=== PATIENT | male | born 1955 | race Caucasian/White ===

== ENCOUNTER → 2022-02-08 | Outpatient (CLI) | payer MEDICARE, OTHER ==
[2022-02-08 14:22] LABS: BASO # 0.1 10^3/uL (0.0-0.2); BASO % 0.6 % (0.0-1.0); EOS # 0.1 10^3/uL (0.0-0.5); HEMATOCRIT 44.6 % (42.0-52.0); HEMOGLOBIN 14.9 g/dl (13.5-17.5); LYMPH # 2.1 10^3/uL (1.5-5.0); LYMPH % 26.1 % (24.0-44.0); MEAN CORPUSCULAR HEMOGLOBIN 33.9 pg (27.0-33.0); MEAN CORPUSCULAR HGB CONC 33.4 g/dl (32.0-36.5); MEAN CORPUSCULAR VOLUME 101.4 fl (80.0-96.0); MONO # 0.6 10^3/uL (0.0-0.8); MONO % 7.8 % (2.0-8.0); NEUTROPHILS % 64.4 % (36.0-66.0); PLATELET COUNT, AUTOMATED 341 10^3/uL (150-450); WHITE BLOOD COUNT 7.8 10^3/uL (4.0-10.0)
[2022-02-08 14:59] LABS: ALBUMIN 3.4 GM/DL (3.2-5.2); ALKALINE PHOSPHATASE 63 U/L (45-117); ALT/SGPT 16 U/L (12-78); AMYLASE 32 U/L (25-115); AST/SGOT 10 U/L (7-37); BILIRUBIN,TOTAL 0.3 MG/DL (0.2-1.0); BLOOD UREA NITROGEN 9 MG/DL (7-18); CALCIUM LEVEL 9.4 MG/DL (8.8-10.2); CARBON DIOXIDE LEVEL 28 MEQ/L (21-32); CHLORIDE LEVEL 102 MEQ/L (98-107); CREATININE FOR GFR 0.77 MG/DL (0.70-1.30); GLOMERULAR FILTRATION RATE > 60.0 (>49); GLUCOSE, FASTING 98 MG/DL (70-100); LIPASE 93 U/L (73-393); POTASSIUM SERUM 4.3 MEQ/L (3.5-5.1); SODIUM LEVEL 136 MEQ/L (136-145); TOTAL PROTEIN 7.2 GM/DL (6.4-8.2)
== END ==
LOC: M WUC 10:46
PROVIDERS: ATTEND Physician Assistant
DX: R10.816 Epigastric abdominal tenderness (principal); Z72.0 Tobacco use

== ENCOUNTER → 2024-01-08 | Outpatient (CLI) | payer MEDICARE | LOC: M WUC 10:14 | PROVIDERS: ATTEND Student in an Organized Health Care Education/Training Program | DX: R06.02 Shortness of breath (principal); I51.7 Cardiomegaly; I70.0 Atherosclerosis of aorta; R91.8 Other nonspecific abnormal finding of lung field ==

== ENCOUNTER 2024-01-15 10:56 | Inpatient (IN) | payer MEDICARE ==
[~2024-01-15] VITALS: Ht 177.8 cm; Wt 62.8 kg
[2024-01-15] VITALS (13 sets, daily range): BP systolic 121–157; BP diastolic 64–98; TEMP 98–98.7; O2SAT 96–98
[2024-01-15 12:11] LABS: VENOUS BASE EXCESS -1.8 (-2.0-2.0); VENOUS HCO3 23.3 MMOL/L (23.0-27.0); VENOUS O2 SATURATION 77.4 % (60.0-80.0); VENOUS PARTIAL PRESSURE CO2 41.2 mmHg (38.0-50.0); VENOUS PARTIAL PRESSURE O2 43.9 mmHg (30.0-50.0); VENOUS PH 7.371 UNITS (7.330-7.430); VENOUS STANDARD HCO3 22.5 MMOL/L; VENOUS TOTAL CO2 24.6 MMOL/L (24.0-28.0)
[2024-01-15 12:17] LABS: BASO % 0.3 % (0.0-1.0); EOS % 0.3 % (0.0-3.0); HEMATOCRIT 37.8 % (42.0-52.0); HEMOGLOBIN 12.7 g/dl (13.5-17.5); LYMPH # 0.6 10^3/uL (1.5-5.0); LYMPH % 5.3 % (24.0-44.0); MEAN CORPUSCULAR HEMOGLOBIN 32.6 pg (27.0-33.0); MEAN CORPUSCULAR HGB CONC 33.6 g/dl (32.0-36.5); MEAN CORPUSCULAR VOLUME 97.2 fl (80.0-96.0); MONO % 7.9 % (2.0-8.0); NEUTROPHILS # 10.4 10^3/uL (1.5-8.5); NEUTROPHILS % 85.9 % (36.0-66.0); PLATELET COUNT, AUTOMATED 673 10^3/uL (150-450); RED BLOOD COUNT 3.89 10^6/uL (4.30-6.10); WHITE BLOOD COUNT 12.2 10^3/uL (4.0-10.0)
[2024-01-15 12:40] LABS: ALKALINE PHOSPHATASE 190 U/L (46-116); ALT/SGPT 56 U/L (7.0-40); AST/SGOT 55 U/L (<34); BILIRUBIN,DIRECT 0.1 MG/DL (<0.4); BILIRUBIN,TOTAL 0.3 MG/DL (0.3-1.2); BLOOD UREA NITROGEN 29 MG/DL (9-23); CALCIUM LEVEL 10.7 MG/DL (8.3-10.6); CARBON DIOXIDE LEVEL 28 MMOL/L (20-31); CHLORIDE LEVEL 105 MMOL/L (98-107); GLOMERULAR FILTRATION RATE > 60.0 (>49); GLUCOSE, FASTING 115 MG/DL (74-106); POTASSIUM SERUM 4.5 MMOL/L (3.5-5.1); SODIUM LEVEL 138 MMOL/L (136-145); TOTAL PROTEIN 6.5 G/DL (5.7-8.2)
[2024-01-15 12:41] LABS: THYROXINE (T4) 9.1 UG/DL (4.5-10.9)
[2024-01-15 12:44] LABS: CPK CREATINE PHOSPHOKINASE 100 U/L (46-171)
[2024-01-15] MEDS: IPRATROPIUM 0.5MG/ALBUTEROL 2.5MG INH SOL UD 3ML (DUONEB) NEB ONE (12:52)
[2024-01-15] MEDS: ALBUTEROL SULFATE 2.5MG/0.5ML INH NEB SOLN INH ONE (12:52)
[2024-01-15] MEDS: PIPERACILLIN/TAZOBACTAM SOD 4.5 GM in D5W MINI-BAG PLUS 50 ML IV ONE (13:01)
[2024-01-15] MEDS ORDERED: ISOVUE-370 76% 100ML VIAL As Ordered ONE (13:01)
[2024-01-15] MEDS: NS 1,000 ML IV ONE (13:01)
[2024-01-15 13:18] LABS: CK-MB VALUE MASS 2.8 NG/ML (<3.6)
[2024-01-15 13:22] LABS: MB/CK RELATIVE INDEX 3.63 (< OR =4)
[2024-01-15] MEDS ORDERED: BISACODYL 10MG SUPP PR PRN (14:15)
[2024-01-15] MEDS ORDERED: LEVALBUTEROL 1.25MG 0.5ML CONCENTRATE NEB NEB PRN (14:15)
[2024-01-15] MEDS ORDERED: ONDANSETRON 4MG 2ML VIAL IV PRN (14:15)
[2024-01-15 14:32] LABS: PROCALCITONIN 0.22 ng/ml
[2024-01-15] MEDS ORDERED: ALBU8.5H INH (15:29)
[2024-01-15] MEDS ORDERED: IPRA0.00 NEB (15:29)
[2024-01-15] MEDS ORDERED: HOME MED LIST COMPLETE! XX SCH (15:30)
[2024-01-15 16:16] LABS: PROCALCITONIN 0.21 ng/ml
[2024-01-15] MEDS: MIDAZOLAM INJ 2MG/2ML VIAL IV STA (17:28)
[2024-01-15] MEDS: LIDOCAINE 1% MDV 20ML VIAL SC STA (17:30)
[2024-01-15] MEDS: KETOROLAC 30 MG/ML 1ML VIAL IV SCH (17:45)
[2024-01-15] MEDS: flumazeniL 0.5MG/5ML VIAL IV STA (18:00)
[2024-01-15 18:45] LABS: PH BODY FLUID 7.517 UNITS (NOT ESTABLISHED); SOURCE, BODY FLUID pH PLEURAL
[2024-01-15 18:57] LABS: APPEARANCE, BODY FLUID CLOUDY (CLEAR); PLEURAL FL COLOR RED (COLORLESS); SOURCE, BODY FLUID PLEURAL
[2024-01-15 19:01] LABS: SOURCE, BODY FLUID ALBUMIN PLEURAL
[2024-01-15 19:06] LABS: SOURCE, BODY FLUID GLUCOSE PLEURAL; SOURCE, BODY FLUID TRIG PLEURAL; TRIGLYCERIDE, BODY FLUID 34 MG/DL (NOT ESTABLISHED)
[2024-01-15] MEDS: DOXYCYCLINE HYCLATE 100 MG in D5W MINI-BAG PLUS 100 ML IV SCH (19:07)
[2024-01-15 19:08] LABS: AMYLASE, BODY FLUID 29 U/L (NOT ESTABLISHED); CHOLESTEROL, BODY FLUID 69 MG/DL (NOT ESTABLISHED); SOURCE, BODY FLUID AMYLASE PLEURAL; SOURCE, BODY FLUID CHOL PLEURAL
[2024-01-15] MEDS: D5W/0.9% SODIUM CHLORIDE 1,000 ML IV SCH (19:09)
[2024-01-15 19:17] LABS: LDH, BODY FLUID > 750 U/L (NOT ESTABLISHED); SOURCE, BODY FLUID LDH PLEURAL
[2024-01-15 19:33] LABS: SOURCE, BODY FLUID TOT PROTEIN PLEURAL; TOTAL PROTEIN, BODY FLUID 4.3 G/DL (NOT ESTABLISHED)
[2024-01-15] MEDS: LEVALBUTEROL 1.25MG 0.5ML CONCENTRATE NEB NEB SCH (20:00)
[2024-01-15] MEDS: IPRATROPIUM 0.5MG/ALBUTEROL 2.5MG INH SOL UD 3ML (DUONEB) NEB SCH (20:09)
[2024-01-15] MEDS: DOCUSATE SODIUM 100MG CAPSULE PO SCH (20:22)
[2024-01-15] MEDS: HEPARIN SOD (PORCINE) 5000UNITS/ML 1ML VIAL/SYRINGE SC SCH (20:22)
[2024-01-15] MEDS: PIPERACILLIN/TAZOBACTAM SOD 3.375 GM in D5W MINI-BAG PLUS 50 ML IV SCH (20:22)
[2024-01-15] MEDS: ACETAMINOPHEN TAB 650MG DOSE (2X325MG) PO PRN (22:01)
[2024-01-16] MEDS: MOM 30ML SUSPENSION UDC PO ONE (02:34)
[2024-01-16 04:01] VITALS: BP_SYST 133; BP_SYST 139; BP_DIAS 72; TEMP 98.4; O2SAT 99
[2024-01-16 05:51] LABS: ABG BASE EXCESS 4.6 (-2.0-2.0); ABG HCO3 30.2 MMOL/L (22.0-26.0); ABG O2 SATURATION 96.9 % (95.0-99.0); ABG PARTIAL PRESSURE CO2 48.8 mmHg (35.0-45.0); ABG PARTIAL PRESSURE O2 88.4 mmHg (75.0-100.0); ABG STANDARD HCO3 28.6 MMOL/L. (22.0-26.0); ABG TOTAL CO2 31.7 MMOL/L (23.0-31.0); ABG pH (ARTERIAL) 7.409 UNITS (7.350-7.450)
[2024-01-16 06:49] LABS: BASO % 0.3 % (0.0-1.0); EOS # 0.2 10^3/uL (0.0-0.5); EOS % 1.6 % (0.0-3.0); HEMATOCRIT 37.6 % (42.0-52.0); HEMOGLOBIN 12.6 g/dl (13.5-17.5); LYMPH % 8.7 % (24.0-44.0); MEAN CORPUSCULAR HEMOGLOBIN 32.8 pg (27.0-33.0); MEAN CORPUSCULAR HGB CONC 33.5 g/dl (32.0-36.5); MEAN CORPUSCULAR VOLUME 97.9 fl (80.0-96.0); MONO # 0.9 10^3/uL (0.0-0.8); MONO % 7.9 % (2.0-8.0); NEUTROPHILS # 9.1 10^3/uL (1.5-8.5); NEUTROPHILS % 81.1 % (36.0-66.0); PLATELET COUNT, AUTOMATED 615 10^3/uL (150-450); RED BLOOD COUNT 3.84 10^6/uL (4.30-6.10); WHITE BLOOD COUNT 11.2 10^3/uL (4.0-10.0)
[2024-01-16 07:21] LABS: ALBUMIN 1.7 G/DL (3.2-5.2); ALKALINE PHOSPHATASE 173 U/L (46-116); ALT/SGPT 52 U/L (7.0-40); AST/SGOT 58 U/L (<34); BILIRUBIN,TOTAL 0.2 MG/DL (0.3-1.2); BLOOD UREA NITROGEN 31 MG/DL (9-23); CALCIUM LEVEL 9.5 MG/DL (8.3-10.6); CARBON DIOXIDE LEVEL 31 MMOL/L (20-31); CHLORIDE LEVEL 105 MMOL/L (98-107); CREATININE FOR GFR 1.05 MG/DL (0.70-1.30); GLOMERULAR FILTRATION RATE > 60.0 (>49); GLUCOSE, FASTING 95 MG/DL (74-106); POTASSIUM SERUM 4.4 MMOL/L (3.5-5.1); SODIUM LEVEL 140 MMOL/L (136-145); TOTAL PROTEIN 5.8 G/DL (5.7-8.2)
[2024-01-16 08:12] VITALS: BP 122/87; TEMP 98.3; O2SAT 95
[2024-01-16] MEDS ORDERED: MOM 30ML SUSPENSION UDC PO SCH (09:00)
[2024-01-16] MEDS: NICOTINE 21MG/24HR 1 EA TRANSDERMAL TD SCH (09:00)
[2024-01-16] MEDS: PANTOPRAZOLE 40MG TAB (PROTONIX) PO SCH (09:29)
[2024-01-16] MEDS: PINK BISMUTH SUSP 524MG/30ML ORAL SYRINGE PO PRN (11:49)
[2024-01-16 12:47] VITALS: BP 134/79; TEMP 98; O2SAT 96
[2024-01-16 15:25] VITALS: BP 135/72; TEMP 98.6; O2SAT 94
[2024-01-16 19:08] VITALS: BP 126/76; TEMP 98.4; O2SAT 95
[2024-01-16 23:59] VITALS: BP 141/82; TEMP 97.6; O2SAT 94
[2024-01-17] MEDS: PERCOCET 5MG/325MG TAB PO PRN ×2 (01:21→11:12)
[2024-01-17 04:09] VITALS: BP 128/80; TEMP 97.2; O2SAT 98
[2024-01-17 06:26] LABS: BASO # 0.1 10^3/uL (0.0-0.2); BASO % 0.5 % (0.0-1.0); EOS # 0.2 10^3/uL (0.0-0.5); EOS % 1.8 % (0.0-3.0); HEMATOCRIT 37.3 % (42.0-52.0); HEMOGLOBIN 12.2 g/dl (13.5-17.5); LYMPH # 1.1 10^3/uL (1.5-5.0); LYMPH % 10.2 % (24.0-44.0); MEAN CORPUSCULAR HEMOGLOBIN 31.9 pg (27.0-33.0); MEAN CORPUSCULAR HGB CONC 32.7 g/dl (32.0-36.5); MEAN CORPUSCULAR VOLUME 97.6 fl (80.0-96.0); NEUTROPHILS # 8.7 10^3/uL (1.5-8.5); NEUTROPHILS % 78.1 % (36.0-66.0); PLATELET COUNT, AUTOMATED 602 10^3/uL (150-450); RED BLOOD COUNT 3.82 10^6/uL (4.30-6.10); WHITE BLOOD COUNT 11.2 10^3/uL (4.0-10.0)
[2024-01-17 06:50] LABS: BLOOD UREA NITROGEN 27 MG/DL (9-23); CALCIUM LEVEL 8.7 MG/DL (8.3-10.6); CARBON DIOXIDE LEVEL 30 MMOL/L (20-31); CHLORIDE LEVEL 108 MMOL/L (98-107); CREATININE FOR GFR 0.93 MG/DL (0.70-1.30); GLOMERULAR FILTRATION RATE > 60.0 (>49); GLUCOSE, FASTING 96 MG/DL (74-106); POTASSIUM SERUM 4.2 MMOL/L (3.5-5.1); SODIUM LEVEL 138 MMOL/L (136-145)
[2024-01-17 08:06] VITALS: BP 133/78; TEMP 96.6; O2SAT 90
[2024-01-17 12:07] VITALS: BP 132/76; TEMP 97.7; O2SAT 93
[2024-01-17 16:09] VITALS: BP 140/76; TEMP 97.8; O2SAT 94
[2024-01-17 20:25] VITALS: BP 138/79; TEMP 98.9; O2SAT 90
[2024-01-17] MEDS: DOXYCYCLINE HYCLATE 100MG TABLET PO SCH (21:32)
[2024-01-17] MEDS: CEFDINIR 300 MG CAP (OMNICEF) PO SCH (21:32)
[2024-01-17] MEDS: RAMELTEON 8 MG TAB (ROZEREM) PO PRN (21:32)
[2024-01-17 23:58] VITALS: BP 133/81; TEMP 97.9; O2SAT 92
[2024-01-18 04:19] VITALS: BP 137/80; TEMP 97.6; O2SAT 93
[2024-01-18 05:55] LABS: BASO # 0.1 10^3/uL (0.0-0.2); BASO % 0.4 % (0.0-1.0); EOS # 0.1 10^3/uL (0.0-0.5); EOS % 0.8 % (0.0-3.0); HEMATOCRIT 38.3 % (42.0-52.0); HEMOGLOBIN 12.7 g/dl (13.5-17.5); LYMPH % 8.2 % (24.0-44.0); MEAN CORPUSCULAR HEMOGLOBIN 32.1 pg (27.0-33.0); MEAN CORPUSCULAR HGB CONC 33.2 g/dl (32.0-36.5); MEAN CORPUSCULAR VOLUME 96.7 fl (80.0-96.0); MONO # 1.1 10^3/uL (0.0-0.8); MONO % 9.1 % (2.0-8.0); NEUTROPHILS # 9.5 10^3/uL (1.5-8.5); PLATELET COUNT, AUTOMATED 641 10^3/uL (150-450); RED BLOOD COUNT 3.96 10^6/uL (4.30-6.10); WHITE BLOOD COUNT 11.7 10^3/uL (4.0-10.0)
[2024-01-18 06:18] LABS: BLOOD UREA NITROGEN 23 MG/DL (9-23); CALCIUM LEVEL 9.1 MG/DL (8.3-10.6); CARBON DIOXIDE LEVEL 28 MMOL/L (20-31); CHLORIDE LEVEL 105 MMOL/L (98-107); CREATININE FOR GFR 0.71 MG/DL (0.70-1.30); GLOMERULAR FILTRATION RATE > 60.0 (>49); GLUCOSE, FASTING 96 MG/DL (74-106); POTASSIUM SERUM 4.6 MMOL/L (3.5-5.1); SODIUM LEVEL 137 MMOL/L (136-145)
[2024-01-18 07:44] VITALS: BP 129/72; TEMP 97.4; O2SAT 91
[2024-01-18 11:19] VITALS: BP 148/63; TEMP 97.3; O2SAT 91
[2024-01-18] MEDS: FOLIC ACID 1MG TAB PO SCH (15:36)
[2024-01-18] MEDS: CYANOCOBALAMIN 500 MCG TAB PO SCH (15:37)
[2024-01-18 15:52] VITALS: BP 139/68; TEMP 97.9; O2SAT 91
[2024-01-18 20:39] VITALS: BP 136/81; TEMP 99.1; O2SAT 92
[2024-01-18] MEDS: traZODone 50 MG TAB PO SCH (20:51)
[2024-01-18 23:21] VITALS: BP 129/76; TEMP 98.2; O2SAT 94
[2024-01-19 04:24] VITALS: BP 118/79; TEMP 98.6; O2SAT 92
[2024-01-19 05:45] LABS: BASO % 0.4 % (0.0-1.0); EOS # 0.1 10^3/uL (0.0-0.5); EOS % 1.1 % (0.0-3.0); HEMATOCRIT 37.9 % (42.0-52.0); HEMOGLOBIN 12.3 g/dl (13.5-17.5); LYMPH % 9.5 % (24.0-44.0); MEAN CORPUSCULAR HEMOGLOBIN 32.3 pg (27.0-33.0); MEAN CORPUSCULAR HGB CONC 32.5 g/dl (32.0-36.5); MEAN CORPUSCULAR VOLUME 99.5 fl (80.0-96.0); MONO # 1.1 10^3/uL (0.0-0.8); MONO % 9.7 % (2.0-8.0); NEUTROPHILS # 8.7 10^3/uL (1.5-8.5); NEUTROPHILS % 78.8 % (36.0-66.0); PLATELET COUNT, AUTOMATED 596 10^3/uL (150-450); RED BLOOD COUNT 3.81 10^6/uL (4.30-6.10)
[2024-01-19 06:16] LABS: BLOOD UREA NITROGEN 21 MG/DL (9-23); CALCIUM LEVEL 8.5 MG/DL (8.3-10.6); CARBON DIOXIDE LEVEL 30 MMOL/L (20-31); CHLORIDE LEVEL 103 MMOL/L (98-107); CREATININE FOR GFR 0.74 MG/DL (0.70-1.30); GLOMERULAR FILTRATION RATE > 60.0 (>49); GLUCOSE, FASTING 93 MG/DL (74-106); POTASSIUM SERUM 4.7 MMOL/L (3.5-5.1); SODIUM LEVEL 136 MMOL/L (136-145)
[2024-01-19 07:38] VITALS: BP 126/75; TEMP 97.4; O2SAT 95
[2024-01-19] MEDS ORDERED: FOLI1TAB11 PO (10:53)
[2024-01-19] MEDS ORDERED: DOXY100T PO (10:53)
[2024-01-19] MEDS ORDERED: VITA500T40 PO (10:53)
[2024-01-19] MEDS ORDERED: CEFD300CAP PO (10:53)
[2024-01-19] MEDS ORDERED: PERCOCET PO (10:53)
== END 2024-01-19 12:13 | disposition home or self-care (01) | DRG 180 ==
LOC: M ED 10:56 → M ED INP 13:50 → M PCU 14:40
PROVIDERS: ADMIT Hospitalist; ATTEND Hospitalist
PROC: 0W9B30Z Drainage of Left Pleural Cavity with Drainage Device, Percutaneous Approach (ICD-10-PCS; principal; 2024-01-15)
DX: C34.32 Malignant neoplasm of lower lobe, left bronchus or lung (principal); J18.9 Pneumonia, unspecified organism; J91.0 Malignant pleural effusion; J44.9 Chronic obstructive pulmonary disease, unspecified; F10.10 Alcohol abuse, uncomplicated; K21.9 Gastro-esophageal reflux disease without esophagitis; F17.210 Nicotine dependence, cigarettes, uncomplicated; E83.51 Hypocalcemia; J47.9 Bronchiectasis, uncomplicated; E83.52 Hypercalcemia; Z79.899 Other long term (current) drug therapy; Z88.8 Allergy status to other drugs, medicaments and biological substances

== ENCOUNTER 2024-01-21 11:35 | Inpatient (IN) | payer MEDICARE ==
[~2024-01-21] VITALS: Ht 177.8 cm; Wt 65.9 kg
[~2024-01-21 11:35] MED LIST: ALBU8.5H INH; CEFD300CAP PO; DOXY100T PO; FOLI1TAB11 PO; IPRA0.00 INH; PERCOCET PO; VITA500T40 PO
[2024-01-21 13:05] LABS: BASO % 0.2 % (0.0-1.0); EOS % 0.1 % (0.0-3.0); HEMATOCRIT 35.5 % (42.0-52.0); LYMPH # 0.8 10^3/uL (1.5-5.0); LYMPH % 4.7 % (24.0-44.0); MEAN CORPUSCULAR HEMOGLOBIN 32.9 pg (27.0-33.0); MEAN CORPUSCULAR HGB CONC 33.8 g/dl (32.0-36.5); MEAN CORPUSCULAR VOLUME 97.3 fl (80.0-96.0); MONO # 1.1 10^3/uL (0.0-0.8); MONO % 6.9 % (2.0-8.0); NEUTROPHILS # 14.1 10^3/uL (1.5-8.5); NEUTROPHILS % 87.7 % (36.0-66.0); PLATELET COUNT, AUTOMATED 464 10^3/uL (150-450); RED BLOOD COUNT 3.65 10^6/uL (4.30-6.10); WHITE BLOOD COUNT 16.1 10^3/uL (4.0-10.0)
[2024-01-21 13:18] LABS: INR 1.16; PROTHROMBIN TIME 14.5 SECONDS (12.5-14.5)
[2024-01-21 13:38] LABS: ALBUMIN 1.6 G/DL (3.2-5.2); ALKALINE PHOSPHATASE 195 U/L (46-116); ALT/SGPT 42 U/L (7.0-40); AST/SGOT 40 U/L (<34); BILIRUBIN,DIRECT < 0.1 MG/DL (<0.4); BILIRUBIN,TOTAL 0.2 MG/DL (0.3-1.2); BLOOD UREA NITROGEN 21 MG/DL (9-23); CALCIUM LEVEL 8.5 MG/DL (8.3-10.6); CARBON DIOXIDE LEVEL 28 MMOL/L (20-31); CHLORIDE LEVEL 104 MMOL/L (98-107); CK-MB VALUE MASS 1.1 NG/ML (<3.6); CPK CREATINE PHOSPHOKINASE 58 U/L (46-171); GLOMERULAR FILTRATION RATE > 60.0 (>49); GLUCOSE, FASTING 133 MG/DL (74-106); MB/CK RELATIVE INDEX 1.89 (< OR =4); POTASSIUM SERUM 4.2 MMOL/L (3.5-5.1); SODIUM LEVEL 137 MMOL/L (136-145); TOTAL PROTEIN 5.7 G/DL (5.7-8.2)
[2024-01-21 13:40] LABS: THYROID STIMULATING HORMONE 1.648 uIU/ML (0.55-4.78)
[2024-01-21] MEDS: IPRATROPIUM 0.5MG/ALBUTEROL 2.5MG INH SOL UD 3ML (DUONEB) NEB SCH ×2 (13:49→16:00)
[2024-01-21] MEDS: dexAMETHasone 20MG/5ML VIAL IV ONE (14:57)
[2024-01-21] MEDS ORDERED: ONDANSETRON 4MG 2ML VIAL IV PRN (16:00)
[2024-01-21] MEDS ORDERED: MIRALAX *UNIT DOSE* 17GM PACKET PO PRN (16:00)
[2024-01-21] MEDS ORDERED: SENOKOT S TAB PO PRN (16:00)
[2024-01-21] MEDS ORDERED: MOM 30ML SUSPENSION UDC PO PRN (16:00)
[2024-01-21] MEDS ORDERED: BISACODYL 5MG TAB PO PRN (16:00)
[2024-01-21] MEDS ORDERED: ISOVUE-370 76% 100ML VIAL As Ordered ONE (17:27)
[2024-01-21] MEDS ORDERED: DOXY100T PO (17:35)
[2024-01-21] MEDS ORDERED: CEFD1CAP9 PO (17:35)
[2024-01-21] MEDS ORDERED: DOXY100C3 PO (17:35)
[2024-01-21] MEDS ORDERED: FOLI1TAB11 PO (17:38)
[2024-01-21] MEDS ORDERED: B-12100021 PO (17:39)
[2024-01-21] MEDS ORDERED: HOME MED LIST COMPLETE! XX SCH (17:40)
[2024-01-21] MEDS: PERCOCET 5MG/325MG TAB PO ONE (18:10)
[2024-01-21] MEDS: methylPREDNISolone 125MG 2ML VIAL IV SCH (18:11)
[2024-01-21] MEDS: KETOROLAC 30 MG/ML 1ML VIAL IV ONE (18:11)
[2024-01-21] MEDS ORDERED: LORazepam 2 MG TAB PO PRN (19:00)
[2024-01-21] MEDS ORDERED: NALOXONE INJ 0.4MG/1ML VIAL IV PRN (19:00)
[2024-01-21] MEDS ORDERED: flumazeniL 0.5MG/5ML VIAL IV PRN (19:00)
[2024-01-21 19:16] LABS: PROCALCITONIN 0.26 ng/ml
[2024-01-21] MEDS: TIOTROPIUM INHALER/CAPSULE (SPIRIVA) INH SCH (19:46)
[2024-01-21] MEDS: BUDESONIDE 180MCG INHALER (PULMICORT FLEXHALER) INH SCH (19:47)
[2024-01-21] MEDS: PIPERACILLIN/TAZOBACTAM SOD 4.5 GM in D5W MINI-BAG PLUS 50 ML IV SCH (21:00)
[2024-01-21] MEDS ORDERED: methylPREDNISolone 125MG 2ML VIAL IV SCH (21:00)
[2024-01-22] VITALS (7 sets, daily range): BP systolic 125–142; BP diastolic 67–97; TEMP 97.1–98.9; O2SAT 91–97
[2024-01-22] MEDS: DICLOFENAC EPOLAMINE 1.3% PATCH TOP SCH (00:10)
[2024-01-22] MEDS: PERCOCET 5MG/325MG TAB PO SCH (01:23)
[2024-01-22] MEDS: guaiFENesin ER TABLET 600 MG TAB PO SCH (01:25)
[2024-01-22 07:32] LABS: BASO % 0.1 % (0.0-1.0); HEMATOCRIT 36.7 % (42.0-52.0); HEMOGLOBIN 11.9 g/dl (13.5-17.5); LYMPH # 0.3 10^3/uL (1.5-5.0); LYMPH % 2.8 % (24.0-44.0); MEAN CORPUSCULAR HGB CONC 32.4 g/dl (32.0-36.5); MEAN CORPUSCULAR VOLUME 98.7 fl (80.0-96.0); MONO # 0.1 10^3/uL (0.0-0.8); MONO % 1.3 % (2.0-8.0); NEUTROPHILS # 10.1 10^3/uL (1.5-8.5); NEUTROPHILS % 95.4 % (36.0-66.0); PLATELET COUNT, AUTOMATED 388 10^3/uL (150-450); RED BLOOD COUNT 3.72 10^6/uL (4.30-6.10); WHITE BLOOD COUNT 10.5 10^3/uL (4.0-10.0)
[2024-01-22 07:57] LABS: BLOOD UREA NITROGEN 19 MG/DL (9-23); CALCIUM LEVEL 9.1 MG/DL (8.3-10.6); CARBON DIOXIDE LEVEL 31 MMOL/L (20-31); CHLORIDE LEVEL 104 MMOL/L (98-107); CHOLESTEROL LEVEL 154 MG/DL (<200); CHOLESTEROL RISK RATIO 4.66 (<5); CREATININE FOR GFR 0.73 MG/DL (0.70-1.30); GLOMERULAR FILTRATION RATE > 60.0 (>49); GLUCOSE, FASTING 124 MG/DL (74-106); LDL CHOLESTEROL 102.8 MG/DL (<100); POTASSIUM SERUM 4.5 MMOL/L (3.5-5.1); SODIUM LEVEL 138 MMOL/L (136-145); TRIGLYCERIDES LEVEL 91 MG/DL (<150)
[2024-01-22 08:00] LABS: THYROID STIMULATING HORMONE 0.405 uIU/ML (0.55-4.78)
[2024-01-22 08:11] LABS: HEPATITIS B SURFACE ANTIGEN NEGATIVE (NEGATIVE)
[2024-01-22 08:33] LABS: HEPATITIS B CORE ANTIBODY IGM NEGATIVE (NEGATIVE); HEPATITIS C VIRUS ABY INDEX 0.15 INDEX (<0.8)
[2024-01-22] MEDS: LIDOCAINE 5% (LIDODERM) PATCH TD SCH (08:53)
[2024-01-22] MEDS: LACTOBACILLUS ACIDOPHILUS CAP (BACID) PO SCH (08:56)
[2024-01-22] MEDS: MULTIVITAMINS/MINERALS THERAP 1 TAB PO SCH (08:56)
[2024-01-22] MEDS: THIAMINE 100 MG TAB PO SCH (08:56)
[2024-01-22] MEDS: CYANOCOBALAMIN 500 MCG TAB PO SCH (08:57)
[2024-01-22] MEDS: ACETAMINOPHEN 325 MG TAB PO PRN (20:27)
[2024-01-22] MEDS: CYANOCOBALAMIN 1,000MCG/ML 1ML VIAL IM ONE (21:30)
[2024-01-23 00:06] VITALS: BP 116/69; TEMP 98.5; O2SAT 93
[2024-01-23 03:53] VITALS: BP 109/78; TEMP 97.4; O2SAT 91
[2024-01-23 05:58] LABS: BASO % 0.1 % (0.0-1.0); HEMATOCRIT 36.2 % (42.0-52.0); HEMOGLOBIN 11.8 g/dl (13.5-17.5); LYMPH # 0.3 10^3/uL (1.5-5.0); LYMPH % 1.7 % (24.0-44.0); MEAN CORPUSCULAR HEMOGLOBIN 32.5 pg (27.0-33.0); MEAN CORPUSCULAR HGB CONC 32.6 g/dl (32.0-36.5); MEAN CORPUSCULAR VOLUME 99.7 fl (80.0-96.0); MONO # 0.5 10^3/uL (0.0-0.8); MONO % 2.7 % (2.0-8.0); NEUTROPHILS # 18.6 10^3/uL (1.5-8.5); NEUTROPHILS % 94.8 % (36.0-66.0); PLATELET COUNT, AUTOMATED 432 10^3/uL (150-450); RED BLOOD COUNT 3.63 10^6/uL (4.30-6.10); WHITE BLOOD COUNT 19.6 10^3/uL (4.0-10.0)
[2024-01-23 06:20] LABS: BLOOD UREA NITROGEN 21 MG/DL (9-23); CARBON DIOXIDE LEVEL 27 MMOL/L (20-31); CHLORIDE LEVEL 103 MMOL/L (98-107); CREATININE FOR GFR 0.68 MG/DL (0.70-1.30); GLOMERULAR FILTRATION RATE > 60.0 (>49); GLUCOSE, FASTING 130 MG/DL (74-106); POTASSIUM SERUM 4.5 MMOL/L (3.5-5.1); SODIUM LEVEL 137 MMOL/L (136-145)
[2024-01-23 07:35] VITALS: BP 113/66; TEMP 97.6; O2SAT 92
[2024-01-23] MEDS ORDERED: PILL CUTTER 1 EACH XX PRN (08:25)
[2024-01-23] MEDS: SIMETHICONE 80MG CHEW TAB PO SCH (08:28)
[2024-01-23] MEDS ORDERED: DEXA4TA PO (10:57)
[2024-01-23] MEDS: MORPHINE 10MG/0.5ML ORAL CONCENTRATE SOLUTION U/D SL PRN (11:32)
[2024-01-23] MEDS ORDERED: PRED20TA PO (17:31)
[2024-01-23] MEDS ORDERED: PRED10TA2 PO (17:31)
[2024-01-23] MEDS ORDERED: MUCI600T31 PO (17:31)
[2024-01-23] MEDS ORDERED: ALBU8.5H INH (17:31)
[2024-01-23] MEDS ORDERED: SIME80TA16 PO (17:31)
[2024-01-23] MEDS ORDERED: DULC10SU2 PR (17:51)
[2024-01-23] MEDS ORDERED: SENN-52 PO (17:51)
[2024-01-23] MEDS ORDERED: LIDO5TD TD (17:51)
[2024-01-23] MEDS ORDERED: DICL1PAT6 TOP (17:51)
[2024-01-23] MEDS ORDERED: MILKSUS3 PO (17:51)
[2024-01-23] MEDS ORDERED: BUDE180INH INH (17:51)
[2024-01-23] MEDS ORDERED: LACT20EL PO (17:51)
[2024-01-23] MEDS ORDERED: RISATAB3 PO (17:51)
[2024-01-23] MEDS ORDERED: CEFD1CAP9 PO (17:54)
[2024-01-23] MEDS ORDERED: DOXY-440 PO (17:54)
[2024-01-23] MEDS ORDERED: NARC1SPR NARES (18:03)
[2024-01-23] MEDS ORDERED: MORP1SOL PO (18:08)
[2024-01-23] MEDS ORDERED: MORP1SOL5 PO (18:11)
[2024-01-23] MEDS ORDERED: VITA500T40 PO (18:13)
[2024-01-23 19:28] VITALS: BP 133/68; TEMP 97.7; O2SAT 90
[2024-01-23 23:32] VITALS: BP 131/73; TEMP 97.4; O2SAT 92
[2024-01-24] VITALS (10 sets, daily range): BP systolic 123–153; BP diastolic 64–87; TEMP 96.8–98; O2SAT 86–91
[2024-01-24] MEDS: methylPREDNISolone 40MG 1ML VIAL IV SCH (01:12)
[2024-01-24] MEDS: IPRATROPIUM 0.5MG/ALBUTEROL 2.5MG INH SOL UD 3ML (DUONEB) NEB PRN (06:09)
[2024-01-24 06:30] LABS: BASO % 0.1 % (0.0-1.0); HEMATOCRIT 34.6 % (42.0-52.0); HEMOGLOBIN 11.3 g/dl (13.5-17.5); LYMPH # 0.3 10^3/uL (1.5-5.0); LYMPH % 1.3 % (24.0-44.0); MEAN CORPUSCULAR HEMOGLOBIN 32.4 pg (27.0-33.0); MEAN CORPUSCULAR HGB CONC 32.7 g/dl (32.0-36.5); MEAN CORPUSCULAR VOLUME 99.1 fl (80.0-96.0); MONO # 0.8 10^3/uL (0.0-0.8); MONO % 3.4 % (2.0-8.0); NEUTROPHILS # 20.8 10^3/uL (1.5-8.5); NEUTROPHILS % 94.5 % (36.0-66.0); PLATELET COUNT, AUTOMATED 386 10^3/uL (150-450); RED BLOOD COUNT 3.49 10^6/uL (4.30-6.10); WHITE BLOOD COUNT 22.1 10^3/uL (4.0-10.0)
[2024-01-24 06:55] LABS: BLOOD UREA NITROGEN 20 MG/DL (9-23); CARBON DIOXIDE LEVEL 32 MMOL/L (20-31); CHLORIDE LEVEL 104 MMOL/L (98-107); CREATININE FOR GFR 0.68 MG/DL (0.70-1.30); GLOMERULAR FILTRATION RATE > 60.0 (>49); GLUCOSE, FASTING 123 MG/DL (74-106); POTASSIUM SERUM 4.1 MMOL/L (3.5-5.1); SODIUM LEVEL 139 MMOL/L (136-145)
[2024-01-24] MEDS: LevoFLOXacin 750 MG TABLET PO ONE (09:20)
[2024-01-24] MEDS: FUROSEMIDE 40MG/4ML VIAL IV ONE (09:20)
[2024-01-24] MEDS: methylPREDNISolone 40MG 1ML VIAL IV ONE (09:20)
[2024-01-24] MEDS ORDERED: FOLI1TAB11 PO (16:37)
[2024-01-25] MEDS ORDERED: ALBU2.5V10 INH (11:27)
== END 2024-01-24 10:33 | disposition home health service (06) | DRG 871 ==
LOC: M ED 11:35 → M ED INP 15:52 → M PCU 01-22 00:34
PROVIDERS: ADMIT General Practice; ATTEND General Practice
DX: A41.9 Sepsis, unspecified organism (principal); J15.69 Pneumonia due to other Gram-negative bacteria; J96.01 Acute respiratory failure with hypoxia; J91.0 Malignant pleural effusion; J44.1 Chronic obstructive pulmonary disease with (acute) exacerbation; J44.0 Chronic obstructive pulmonary disease with (acute) lower respiratory infection; C48.2 Malignant neoplasm of peritoneum, unspecified; R64 Cachexia; C34.32 Malignant neoplasm of lower lobe, left bronchus or lung; R62.7 Adult failure to thrive; F17.200 Nicotine dependence, unspecified, uncomplicated; F10.10 Alcohol abuse, uncomplicated; Z88.8 Allergy status to other drugs, medicaments and biological substances; Z79.899 Other long term (current) drug therapy

== ENCOUNTER → 2024-01-24 | Outpatient (CLI) | payer MEDICARE ==
[~2024-01-24] MED LIST changes: +ALBU2.5V10 INH; +B-12100021 PO; +BUDE180INH INH; +CEFD1CAP9 PO; +DEXA4TA PO; +DICL1PAT6 TOP; +DOXY-440 PO; +DOXY100C3 PO; +DULC10SU2 PR; -IPRA0.00 INH; +IPRA0.00 NEB; +LACT20EL PO; +LIDO5TD TD; +LIDOCAINE 1% MDV 20ML VIAL As Ordered ONE; +MIDAZOLAM INJ 2MG/2ML VIAL As Ordered ONE; +MILKSUS3 PO; +MORP1SOL PO; +MORP1SOL5 PO; +MUCI600T31 PO; +NARC1SPR NARES; +PRED10TA2 PO; +PRED20TA PO; +RISATAB3 PO; +SENN-52 PO; +SIME80TA16 PO; +ceFAZolin 2 GM/D5W 50 ML IV BAG As Ordered ONE; +fentaNYL 100 MCG/2 ML INJECTION As Ordered ONE
[2024-01-24 11:10] VITALS: TEMP 98.5
[2024-01-24] MEDS: NS 1,000 ML IV SCH (11:36)
[2024-01-24] MEDS: ceFAZolin SOD 2 GM in IV 1 EA IV ONE (11:36)
[2024-01-24 13:00] VITALS: BP 144/93; O2SAT 94
== END ==
LOC: M IRPRO 10:50
PROVIDERS: ATTEND Internal Medicine Medical Oncology
DX: C34.90 Malignant neoplasm of unspecified part of unspecified bronchus or lung (principal)
CPT/HCPCS: 36561; 99152; J0690; J1642; J2250; J3010

== ENCOUNTER 2024-01-28 05:46 | Inpatient (IN) | payer MEDICARE ==
[~2024-01-28] VITALS: Ht 177.8 cm; Wt 63.6 kg
[~2024-01-28 05:46] MED LIST changes: +IPRA0.00 INH; -IPRA0.00 NEB; -LIDOCAINE 1% MDV 20ML VIAL As Ordered ONE; -MIDAZOLAM INJ 2MG/2ML VIAL As Ordered ONE; -ceFAZolin 2 GM/D5W 50 ML IV BAG As Ordered ONE; -fentaNYL 100 MCG/2 ML INJECTION As Ordered ONE
[2024-01-28 06:40] LABS: VENOUS BASE EXCESS 3.5 (-2.0-2.0); VENOUS HCO3 30.9 MMOL/L (23.0-27.0); VENOUS O2 SATURATION 94.1 % (60.0-80.0); VENOUS PARTIAL PRESSURE CO2 58.5 mmHg (38.0-50.0); VENOUS PARTIAL PRESSURE O2 78.2 mmHg (30.0-50.0); VENOUS STANDARD HCO3 27.5 MMOL/L; VENOUS TOTAL CO2 32.6 MMOL/L (24.0-28.0)
[2024-01-28 06:52] LABS: BASO # 0.1 10^3/uL (0.0-0.2); BASO % 0.2 % (0.0-1.0); HEMATOCRIT 40.6 % (42.0-52.0); HEMOGLOBIN 12.9 g/dl (13.5-17.5); LYMPH # 0.7 10^3/uL (1.5-5.0); LYMPH % 2.3 % (24.0-44.0); MEAN CORPUSCULAR HEMOGLOBIN 32.2 pg (27.0-33.0); MEAN CORPUSCULAR HGB CONC 31.8 g/dl (32.0-36.5); MEAN CORPUSCULAR VOLUME 101.2 fl (80.0-96.0); MONO # 1.4 10^3/uL (0.0-0.8); MONO % 4.6 % (2.0-8.0); NEUTROPHILS # 27.8 10^3/uL (1.5-8.5); PLATELET COUNT, AUTOMATED 236 10^3/uL (150-450); RED BLOOD COUNT 4.01 10^6/uL (4.30-6.10)
[2024-01-28 06:55] LABS: INR 1.21; PROTHROMBIN TIME 14.9 SECONDS (12.5-14.5)
[2024-01-28 07:04] LABS: WHITE BLOOD COUNT 30.3 10^3/uL (4.0-10.0)
[2024-01-28 07:21] LABS: CK-MB VALUE MASS 4.1 NG/ML (<3.6)
[2024-01-28 07:24] LABS: ALBUMIN 1.9 G/DL (3.2-5.2); ALKALINE PHOSPHATASE 177 U/L (46-116); ALT/SGPT 52 U/L (7.0-40); AST/SGOT 55 U/L (<34); BILIRUBIN,DIRECT 0.2 MG/DL (<0.4); BILIRUBIN,TOTAL 0.5 MG/DL (0.3-1.2); BLOOD UREA NITROGEN 30 MG/DL (9-23); CARBON DIOXIDE LEVEL 32 MMOL/L (20-31); CHLORIDE LEVEL 98 MMOL/L (98-107); CREATININE FOR GFR 0.64 MG/DL (0.70-1.30); GLOMERULAR FILTRATION RATE > 60.0 (>49); GLUCOSE, FASTING 143 MG/DL (74-106); POTASSIUM SERUM 4.3 MMOL/L (3.5-5.1); SODIUM LEVEL 140 MMOL/L (136-145)
[2024-01-28 07:31] LABS: CPK CREATINE PHOSPHOKINASE 211 U/L (46-171); MB/CK RELATIVE INDEX 1.94 (< OR =4)
[2024-01-28] MEDS: dexAMETHasone 20MG/5ML VIAL IV ONE (07:32)
[2024-01-28] MEDS: IPRATROPIUM 0.5MG/ALBUTEROL 2.5MG INH SOL UD 3ML (DUONEB) NEB PRN (07:38)
[2024-01-28] MEDS ORDERED: ISOVUE-370 76% 100ML VIAL As Ordered ONE (07:48)
[2024-01-28] MEDS ORDERED: SODIUM CHLORIDE 0.9% INJ 10 ML SYR IV PRN (07:50)
[2024-01-28] MEDS: ONDANSETRON 4MG 2ML VIAL IV ONE (07:54)
[2024-01-28] MEDS: FUROSEMIDE 40MG/4ML VIAL IV ONE (07:55)
[2024-01-28] MEDS: METOPROLOL 5 MG/5 ML VIAL IV SCH (08:21)
[2024-01-28] MEDS: METOPROLOL TART 25 MG TABLET PO ONE (08:21)
[2024-01-28] MEDS ORDERED: GUAI600T54 PO (11:46)
[2024-01-28] MEDS ORDERED: RISATAB3 PO (11:49)
[2024-01-28] MEDS: IPRATROPIUM 0.5MG/ALBUTEROL 2.5MG INH SOL UD 3ML (DUONEB) NEB SCH (12:00)
[2024-01-28] MEDS ORDERED: SIME80CH6 PO (12:00)
[2024-01-28] MEDS ORDERED: HOME MED LIST COMPLETE! XX SCH (12:05)
[2024-01-28 13:25] LABS: PROCALCITONIN 0.18 ng/ml
[2024-01-28] MEDS: PIPERACILLIN/TAZOBACTAM SOD 4.5 GM in DEXTROSE 5% (D5W) ADV/MINI-BAG 50 ML IV SCH (13:29)
[2024-01-28] MEDS: METOPROLOL TART 25 MG TABLET PO SCH (13:38)
[2024-01-28] MEDS: methylPREDNISolone 40MG 1ML VIAL IV SCH (14:03)
[2024-01-28] MEDS: VANCOMYCIN 1,250 MG/250 ML IV BAG *LOAD IV ONE (15:02)
[2024-01-28] MEDS: ONDANSETRON 4MG 2ML VIAL IV PRN (15:16)
[2024-01-28] MEDS: PANTOPRAZOLE 40MG VIAL IV SCH (20:37)
[2024-01-28] MEDS: FUROSEMIDE 40MG/4ML VIAL IV SCH (20:42)
[2024-01-28] MEDS ORDERED: SENOKOT S TAB PO PRN (20:55)
[2024-01-28] MEDS: MIRALAX *UNIT DOSE* 17GM PACKET PO SCH (21:14)
[2024-01-28] MEDS: BISACODYL 10MG SUPP PR ONE (22:12)
[2024-01-28] MEDS: VANCOMYCIN 1,000MG/200 ML IV BAG IV SCH (23:07)
[2024-01-29] VITALS (10 sets, daily range): BP systolic 80–127; BP diastolic 54–71; TEMP 98; O2SAT 65–97
[2024-01-29 07:10] LABS: HEMATOCRIT 39.9 % (42.0-52.0); HEMOGLOBIN 12.6 g/dl (13.5-17.5); MEAN CORPUSCULAR HEMOGLOBIN 32.2 pg (27.0-33.0); MEAN CORPUSCULAR HGB CONC 31.6 g/dl (32.0-36.5); PLATELET COUNT, AUTOMATED 172 10^3/uL (150-450); RED BLOOD COUNT 3.91 10^6/uL (4.30-6.10)
[2024-01-29 07:16] LABS: WHITE BLOOD COUNT 32.2 10^3/uL (4.0-10.0)
[2024-01-29 07:54] LABS: ALBUMIN 1.8 G/DL (3.2-5.2); ALKALINE PHOSPHATASE 183 U/L (46-116); ALT/SGPT 50 U/L (7.0-40); AST/SGOT 52 U/L (<34); BILIRUBIN,TOTAL 0.4 MG/DL (0.3-1.2); BLOOD UREA NITROGEN 47 MG/DL (9-23); CALCIUM LEVEL 8.7 MG/DL (8.3-10.6); CARBON DIOXIDE LEVEL 33 MMOL/L (20-31); CHLORIDE LEVEL 97 MMOL/L (98-107); GLOMERULAR FILTRATION RATE > 60.0 (>49); GLUCOSE, FASTING 98 MG/DL (74-106); POTASSIUM SERUM 4.5 MMOL/L (3.5-5.1); SODIUM LEVEL 139 MMOL/L (136-145); TOTAL PROTEIN 5.5 G/DL (5.7-8.2)
[2024-01-29] MEDS: FUROSEMIDE 40MG/4ML VIAL IV SCH (09:00)
[2024-01-29] MEDS: VANCOMYCIN 750MG/150 ML IV BAG IV SCH (10:52)
[2024-01-29] MEDS: LACTOBACILLUS ACIDOPHILUS CAP (BACID) PO SCH (10:52)
[2024-01-29] MEDS: ENOXAPARIN 40MG/0.4ML SYRINGE (J1650 PER 10MG) SC SCH (10:54)
[2024-01-29] MEDS: FOLIC ACID 1MG TAB PO SCH (10:54)
[2024-01-29] MEDS: guaiFENesin ER TABLET 600 MG TAB PO SCH (10:55)
[2024-01-29] MEDS: MORPHINE 10MG/0.5ML ORAL CONCENTRATE SOLUTION U/D PO PRN (11:40)
[2024-01-29] MEDS: IPRATROPIUM 0.5MG/ALBUTEROL 2.5MG INH SOL UD 3ML (DUONEB) NEB SCH (11:40)
[2024-01-29] MEDS: SODIUM CHLORIDE 0.9% INJ 10 ML SYR IV SCH (15:09)
[2024-01-29] MEDS: MORPHINE 2 MG/ML 1ML VIAL IV ONE (17:04)
[2024-01-29] MEDS ORDERED: MORPHINE 2 MG/ML 1ML VIAL IV PRN (17:30)
[2024-01-29] MEDS ORDERED: LORazepam 2 MG/ML 1ML VIAL IV PRN (19:40)
[2024-01-29] MEDS: LORazepam 2 MG/ML 1ML VIAL IV STA (20:03)
[2024-01-29] MEDS: MORPHINE 4 MG/ML 1ML VIAL IV ONE (20:04)
[2024-01-29] MEDS: MORPHINE 2 MG/ML 1ML VIAL IV PRN (21:37)
== END 2024-01-29 23:00 | disposition expired | DRG 180 ==
LOC: M ED 05:46 → M ED INP 12:30 → M ICU 01-29 14:12
PROVIDERS: ADMIT Internal Medicine Pulmonary Disease; ATTEND Internal Medicine Pulmonary Disease
DX: C34.92 Malignant neoplasm of unspecified part of left bronchus or lung (principal); J96.01 Acute respiratory failure with hypoxia; E43 Unspecified severe protein-calorie malnutrition; J96.02 Acute respiratory failure with hypercapnia; J18.9 Pneumonia, unspecified organism; C78.02 Secondary malignant neoplasm of left lung; R18.8 Other ascites; J98.11 Atelectasis; J44.0 Chronic obstructive pulmonary disease with (acute) lower respiratory infection; C78.6 Secondary malignant neoplasm of retroperitoneum and peritoneum; I48.91 Unspecified atrial fibrillation; R57.1 Hypovolemic shock; Z51.5 Encounter for palliative care; F17.200 Nicotine dependence, unspecified, uncomplicated; Z66 Do not resuscitate; Z79.899 Other long term (current) drug therapy; Z79.52 Long term (current) use of systemic steroids; Z88.8 Allergy status to other drugs, medicaments and biological substances